=== PATIENT | male | born 1970 ===

== ENCOUNTER 2020-03-28 01:02 | Outpatient (CLI) | payer OTHER, SELFPAY ==
[2020-03-28 17:33] LABS: SARS-CoV-2 RNA PCR Negative
== END 2020-03-28 01:03 | disposition home or self-care (01) ==
LOC: ANHCOVIDDT 01:03
PROVIDERS: Visit Provider Internal Medicine Critical Care Medicine
DX: U07.1 COVID-19 (principal)
CPT/HCPCS: C9803; U0003; U0005

== ENCOUNTER 2020-03-30 09:16 | Outpatient (CLI) | payer OTHER, SELFPAY ==
--- NOTE | 2020-04-22 09:55 | WPDSLEEPSTUD ---
Sleep Study Date of Study: 03/30/20 Ordering Provider: Ramiro Mendoza MD Interpreting Physician: Vaishnavi Ng MD Sleep Study Type: Polysomnogram Height: 1.73 m Weight: 74.843 kg Body Mass Index: 25.0 Neck Circumference: 44.45 cm [place]: 2 Reason for Sleep Study Loud snoring with witnessed apneas, non restorative sleep Sleep History Maximus Nagy is a 49 year old man who complains of feeling tired and unrefreshed even when going to bed at 10:30 a.m. at night. He wakes up at 5:30 a.m.. Wakes at least once at night to use the bathroom. His notices that he talks in his sleep and she has also witnessed apneas. She tells him that he blows on her during the night. This is been going on for 1-2 years. He occasionally snores. Rarely isn't loud enough that others complain about it. He rarely awakens at night with heartburn, belching or coughing. He does not awaken from sleep feeling short of breath. He occasionally has trouble sleeping with a cold. He does not gasp for breath at night. He frequently has breathing problems at night observed by his . He rarely sweats excessively at night. He does not notice his heart pounding or beating irregularly at night. He does not fall asleep during the day, does not fall asleep involuntarily, while driving or while exerting physical effort. He does not have loss of muscle tone with strong emotion. He does not have daytime difficulties due to excessive sleepiness. He does not feel paralyzed on waking or falling asleep. He does not have vivid dreamlike scenes upon awakening or falling asleep. He is not afraid to go to sleep. He rarely has nightmares. He rarely remembers his dreams. He occasionally has racing thoughts. He does not feel sad, depressed, anxious. He does not have muscular tension. He frequently notices parts of his body jerking. He does not kick at night. He does not have crawling and aching feelings in his legs. He does not have any kind of leg pain at night. He does not have morning jaw pain. He rarely grinds his teeth during sleep. He frequently is bothered by pain during the day, occasionally is awakened by pain at night. He does not wake up feeling stiff in the morning, does not have sore achy muscles. He rarely wakes up with pain in the neck and spine. He has libido issues and memory problems. He rarely has heartburn at night. He rarely has morning headaches. Occasionally he wakes up feeling refreshed but usually not. Normal bedtime is 10:30 p.m. falling asleep within 15-20 minutes, waking at least once at night to urinate, and is usually able to return to sleep within 10 minutes. He wakes in the morning at 5:30 a.m. during the week. On the weekends, he goes to bed at the same time and wakes at 6:00 a.m. He estimates 7 hours of sleep at night. He does not usually take a nap. A short nap may be refreshing. He feels better in the morning compared other times of day Habits: Never smoked tobacco. Caffeine 1 per day. Alcohol 1 per day. 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, refractive, myopia History of prostate cancer Hypermetropia Surgical History Surgical History (Updated 04/22/20 @ 10:05 by Vaishnavi Ng MD) History of prostatectomy Family History Family History Father Hyperlipemia Malignant neoplasm of prostate Stomach cancer Social History Social History (Updated 04/22/20 @ 10:05 by Vaishnavi Ng MD) Smoking status: Never smoker Alcohol intake: current Medications Home Medications Medication Instructions Recorded Confirmed Type tadalafil 5 mg tablet 5 mg PO DAILY 02/01/20 02/01/20 History Sleep Procedure This test was performed using the [employer] multiple channel system including EOG, EEG, submenta
[2020-04-22 10:21] VITALS: BMI 25.0
== END 2020-03-30 09:17 | disposition home or self-care (01) ==
LOC: ANHCSM 09:18
PROVIDERS: Visit Provider Internal Medicine Critical Care Medicine
DX: G47.30 Sleep apnea, unspecified (principal); R06.83 Snoring
CPT/HCPCS: 95810

== ENCOUNTER 2020-08-15 13:37 | Outpatient (CLI) | payer OTHER, SELFPAY ==
--- NOTE | 2020-09-05 10:05 | WPDHOMESLEEP ---
Sleep Study - Home Unattended Date of Study: 08/15/20 Ordering Provider: Bryant Swann APRN Interpreting Provider: Vaishnavi Ng MD Home Sleep Study Type: Apnea Link Air Height: 1.73 m Weight: 77.111 kg Body Mass Index: 25.8 Neck Circumference (inches): 14 [place]: 8 Reason for Sleep Study non restorative sleep, tired during the day, nocturia Sleep History Maximus Nagy is a 49-year-old man who has non restorative sleep. This is been going on for 1-2 years. He wakes up during the night, and he has excessive daytime sleepiness. He does not awaken from sleep feeling short of breath. He does not awaken at night with heartburn, belching or coughing. He occasionally snores. He does not snore loudly enough that others complain. He rarely has trouble sleep with a cold. He does not wake up gasping for breath at night. He frequently has breathing problems at night observed by others. He rarely sweats excessively at night. He does not notice his heart pounding or beating irregularly at night. He occasionally falls asleep during the day but never falls asleep involuntarily. He never falls asleep while driving. He does not have loss of muscle tone was strong emotion. He occasionally has daytime difficulties due to excessive sleepiness. He does not feel paralyzed on waking or falling asleep. He rarely has vivid dreamlike scenes upon awakening or falling asleep. He does not feel afraid to go to sleep. He occasionally has nightmares. He occasional remembers his dreams. He occasionally has racing thoughts. He rarely feels sad or depressed. He rarely has anxiety. He does not have muscular tension. He frequently notices parts of his body jerking. He rarely kicks at night. He does not have crawling or aching feelings in his legs or any kind of leg pain at night. He does not have morning jaw pain. He does not grind his teeth during sleep. He is not bothered by pain during the day and is not awakened by pain during the night. He occasionally wakes up feeling stiff in the morning. He does not wake up with sore achy muscles. He occasionally wakes up with pain in the neck and spine. He has acid reflux. He has gained 5-7 lb in the last year. Bedtime is 10:00 p.m. falling asleep within 20-30 minutes, waking 1 or 2 times at night to urinate. He is able to return to sleep within 15-20 minutes. He awakens between 2:00 a.m. and 3:00 a.m.. He denies taking naps in the afternoon or evening. A short nap may be refreshing. He is usually drowsy for 2 hours after waking. He feels better in the afternoon compared other times a day. Habits: Never smoked tobacco. Caffeine 2 cups of coffee in the morning. Alcohol 1 per day. 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 Error, refractive, myopia History of prostate cancer Hypermetropia Surgical History Surgical History History of prostatectomy Family History Family History Father Hyperlipemia Malignant neoplasm of prostate Stomach cancer Social History Social History Smoking status: Former smoker Tobacco type: cigars Alcohol intake: current Medications Home Medications Medication Instructions Recorded Confirmed Type tadalafil 5 mg tablet 5 mg PO DAILY 02/01/20 05/11/20 History Sleep Procedure This test was performed using 4 channel monitoring including respiratory effort channel, snoring channel, heart rate channel, and oxygen saturation channel. This study was scored using CMS guidelines. Sleep Architecture Not applicable for home sleep test. Respiratory Analysis Recording time 7 hours 43 minutes. Evaluation duration 7 hours 31 minutes. the apnea-hypopn
[2020-09-05 10:18] VITALS: BMI 25.8
== END 2020-08-16 10:51 | disposition home or self-care (01) ==
LOC: ANHCSM 13:38
PROVIDERS: Visit Provider Nurse Practitioner Family
DX: G47.30 Sleep apnea, unspecified (principal); R06.83 Snoring
CPT/HCPCS: 95806

== ENCOUNTER 2020-10-05 08:43 | Outpatient (CLI) | payer OTHER, SELFPAY ==
--- NOTE | 2020-10-31 19:13 | WPDSLEEPSTUD ---
Sleep Study Date of Study: 10/05/20 Ordering Provider: Bryant Swann APRN Interpreting Physician: Vaishnavi Ng MD Sleep Study Type: CPAP Titration Height: 1.73 m Weight: 77.111 kg Body Mass Index: 25.8 Neck Circumference (inches): 16 [place]: 9 Reason for Sleep Study Basic nocturnal polysomnogram 03/30/2020 with snoring, mild sleep apnea; repeat home sleep test 08/15/2020 shows moderate obstructive sleep apnea with an AHI of 19, mainly central apneas desaturation 85% snoring and tachycardia. Central apnea index is 5.9. He now presents for CPAP titration. Sleep History Maximus Nagy is a 49-year-old man who has non restorative sleep. This is been going on for 1-2 years. He wakes up during the night, and he has excessive daytime sleepiness. He does not awaken from sleep feeling short of breath. He does not awaken at night with heartburn, belching or coughing. He occasionally snores. He does not snore loudly enough that others complain. He rarely has trouble sleep with a cold. He does not wake up gasping for breath at night. He frequently has breathing problems at night observed by others. He rarely sweats excessively at night. He does not notice his heart pounding or beating irregularly at night. He occasionally falls asleep during the day but never falls asleep involuntarily. He never falls asleep while driving. He does not have loss of muscle tone was strong emotion. He occasionally has daytime difficulties due to excessive sleepiness. He does not feel paralyzed on waking or falling asleep. He rarely has vivid dreamlike scenes upon awakening or falling asleep. He does not feel afraid to go to sleep. He occasionally has nightmares. He occasional remembers his dreams. He occasionally has racing thoughts. He rarely feels sad or depressed. He rarely has anxiety. He does not have muscular tension. He frequently notices parts of his body jerking. He rarely kicks at night. He does not have crawling or aching feelings in his legs or any kind of leg pain at night. He does not have morning jaw pain. He does not grind his teeth during sleep. He is not bothered by pain during the day and is not awakened by pain during the night. He occasionally wakes up feeling stiff in the morning. He does not wake up with sore achy muscles. He occasionally wakes up with pain in the neck and spine. He has acid reflux. He has gained 5-7 lb in the last year. Bedtime is 10:00 p.m. falling asleep within 20-30 minutes, waking 1 or 2 times at night to urinate. He is able to return to sleep within 15-20 minutes. He awakens between 2:00 a.m. and 3:00 a.m.. He denies taking naps in the afternoon or evening. A short nap may be refreshing. He is usually drowsy for 2 hours after waking. He feels better in the afternoon compared other times a day. Habits: Never smoked tobacco. Caffeine 2 cups of coffee in the morning. One alcohol per day. 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 Error, refractive, myopia History of prostate cancer Hypermetropia Surgical History Surgical History History of prostatectomy Family History Family History Father Hyperlipemia Malignant neoplasm of prostate Stomach cancer Social History Social History Smoking status: Former smoker Tobacco type: cigars Alcohol intake: current Medications Home Medications Medication Instructions Recorded Confirmed Type tadalafil 5 mg tablet 5 mg PO DAILY 02/01/20 05/11/20 History eszopiclone 3 mg tablet 3 mg PO QHS #1 tablet 09/05/20 Rx Sleep Procedure This test was performed using the [employer] multiple channel system including EOG, EEG, submental EMG, EKG
[2020-10-31 19:14] VITALS: BMI 25.8
== END 2020-10-06 05:50 | disposition home or self-care (01) ==
LOC: ANHCSM 08:44
PROVIDERS: Visit Provider Nurse Practitioner Family
DX: G47.33 Obstructive sleep apnea (adult) (pediatric) (principal)
CPT/HCPCS: 95811